=== PATIENT | male | born 2000 | race Caucasian/White ===

== ENCOUNTER 2023-04-19 09:05 | Emergency (ER) | payer SELFPAY ==
[~2023-04-19] VITALS: Ht 195.6 cm; Wt 85.0 kg
[2023-04-19 09:07] VITALS: TEMP 98.6
[2023-04-19] MEDS ORDERED: iohexol 350MG/ML 100ml bottle IV ONE (10:00)
[2023-04-19 11:50] VITALS: BP 154/102; PULSE 52; O2SAT 100
[2023-04-19 12:19] VITALS: RESP 16
== END 2023-04-19 12:28 | disposition home or self-care (01) ==
LOC: ER 09:06
DX: G44.84 Primary exertional headache (principal)
CPT/HCPCS: 70450; 70496; 99285; J3490; Q9967

== ENCOUNTER 2023-06-19 12:49 | Emergency (ER) | payer OTHER ==
[~2023-06-19] VITALS: Ht 195.6 cm; Wt 90.0 kg
[2023-06-19 13:04] VITALS: BP 132/80; PULSE 73; RESP 16; TEMP 97.2; O2SAT 99
[2023-06-19 18:13] LABS: BASOPHILS % (AUTO) 1.4 % (0-1); EOSINOPHILS % (AUTO) 1.5 % (0-6); HEMOGLOBIN 14.2 g/dl (14.0-17.9); LYMPHOCYTES # (AUTO) 1.1 X10'3 (1.1-4.8); LYMPHOCYTES % (AUTO) 33.3 % (21-51); MEAN CORPUSCULAR HEMOGLOBIN 32.7 PG (27.0-31.0); MEAN CORPUSCULAR HGB CONC 33.9 g/dL (33.0-36.5); MEAN CORPUSCULAR VOLUME 96.6 FL (78-98); MEAN PLATELET VOLUME 7.4 FL (7.4-10.4); MONOCYTES # (AUTO) 0.3 X10'3 (0-0.9); MONOCYTES % (AUTO) 10.1 % (2-12); NEUTROPHILS # (AUTO) 1.7 X10'3 (1.8-7.7); NEUTROPHILS % (AUTO) 53.7 % (42-75); PLATELET COUNT 234 X10'3 (140-440); RED BLOOD COUNT 4.35 X10'6 (4.70-6.10); RED CELL DISTRIBUTION WIDTH 13.2 % (11.5-14.5); WHITE BLOOD COUNT 3.2 X10'3 (4.5-11.0)
[2023-06-19 18:26] LABS: ALANINE AMINOTRANSFERASE 27 U/L (12-78); ALBUMIN 4.4 G/DL (3.4-5.0); ALBUMIN/GLOBULIN RATIO 1.3 (1.1-1.5); ALKALINE PHOSPHATASE 77 IU/L (46-116); ANION GAP 10 (8-16); ASPARTATE AMINO TRANSFERASE 24 U/L (10-37); BILIRUBIN,TOTAL 0.5 MG/DL (0.1-1.0); BLOOD UREA NITROGEN 20 MG/DL (7-18); BUN/CREATININE RATIO 21.5 (10.0-20.0); CALCIUM 9.2 MG/DL (8.5-10.1); CHLORIDE 102 MMOL/L (99-107); CREATININE 0.93 MG/DL (0.60-1.10); GLUCOSE 91 MG/DL (70-104); POTASSIUM 4.2 MMOL/L (3.5-5.1); SODIUM 139 MMOL/L (135-145); TOTAL CARBON DIOXIDE 26.9 MMOL/L (24-32); TOTAL PROTEIN 7.8 G/DL (6.4-8.2); eCRCL 158 ML/MIN; eGFR > 90 ML/MIN
== END 2023-06-19 18:58 | disposition home or self-care (01) ==
LOC: ER 12:50
DX: R59.1 Generalized enlarged lymph nodes (principal)
CPT/HCPCS: 36415; 80053; 85025; 99283; A6250